=== PATIENT | male | born 1965 | race Caucasian/White ===

== ENCOUNTER 2021-03-27 11:59 | Emergency (ER) | payer BC ==
[~2021-03-27] VITALS: Ht 177.8 cm; Wt 102.3 kg
[~2021-03-27 11:59] MED LIST: ASPIRIN 81M81 MG/TA2 PO; LEXAPRO 10MG10 MG PO; PRILOSEC 20MG20 MG PO; TOPROL XL 25MG25 MG PO; ZOCOR5 MG PO
[2021-03-27 12:26] VITALS: TEMP 98.9
[2021-03-27] MEDS ORDERED: CRUTCHES MC (16:12)
[2021-03-27 16:53] VITALS: BP 146/96; PULSE 61
== END 2021-03-27 16:53 | disposition home or self-care (01) ==
LOC: COL.ER 11:59
DX: S92.002A Unspecified fracture of left calcaneus, initial encounter for closed fracture (principal); I10 Essential (primary) hypertension; E78.5 Hyperlipidemia, unspecified; Z79.899 Other long term (current) drug therapy; W20.8XXA Other cause of strike by thrown, projected or falling object, initial encounter

== ENCOUNTER → 2021-09-18 | Outpatient (CLI) | payer BC ==
[~2021-09-18] MED LIST changes: +CRUTCHES MC
== END ==
LOC: COL.RAD 09:24
DX: M25.572 Pain in left ankle and joints of left foot (principal)
CPT/HCPCS: J3301; Q9967